=== PATIENT | male | born 1975 | race Caucasian/White ===

== ENCOUNTER 2017-01-31 23:20 | Emergency (ER) | payer OTHER ==
[~2017-01-31] VITALS: Ht 177.8 cm; Wt 99.5 kg
[2017-01-31 23:27] VITALS: TEMP 36.5; Ht 177.8 cm; Wt 99.5 kg
[2017-01-31] MEDS ORDERED: LIDOCAINE HCL 2% VISC SOLN 20 ML UDC PO STA (23:51)
[2017-01-31] MEDS ORDERED: ALUMINUM/MAGNESIUM SUSP 30 ML UDC PO STA (23:51)
[2017-02-01 00:18] LABS: BASO % 0.2 %; BASO ABS # 0.02 K/uL (0-0.2); COMPLETE YES; EOS % 1.6 %; HEMATOCRIT 42.3 % (42-52); IG% 0.2 %; LYMPH % 46.3 %; LYMPH ABS # 4.47 K/uL (1.2-3.4); MEAN CELL VOLUME 89.6 fL (80-100); MEAN CORPUSCULAR HEMOGLOBIN 30.3 pg (25-34); MEAN CORPUSCULAR HGB CONC 33.8 g/dl (32-36); MEAN PLATELET VOLUME 8.8 fL (7.4-10.4); MONO % 7.6 %; NEUT % 44.1 %; PLATELET COUNT 417 K/uL (130-400); RED BLOOD COUNT 4.72 M/uL (4.7-6.1); WHITE BLOOD COUNT 9.65 K/uL (4.8-10.8)
[2017-02-01 00:38] LABS: ALT/SGPT 27 U/L (12-78); AST/SGOT 11 U/L (15-37); BLOOD UREA NITROGEN 19 mg/dl (7-18); BUN/CREATININE RATIO 19.2 (10-20); CALCIUM 9.2 mg/dl (8.5-10.1); CARBON DIOXIDE 28 mmol/L (21-32); CHLORIDE 106 mmol/L (98-107); CREATININE 0.98 mg/dl (0.60-1.40); GLUCOSE 91 mg/dl (70-99); POTASSIUM 4.2 mmol/L (3.5-5.1); SODIUM 141 mmol/L (136-145)
[2017-02-01 00:43] LABS: ALKALINE PHOSPHATASE 70 U/L (45-117)
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
[2017-02-01] MEDS ORDERED: PANT40TA PO (02:37)
[2017-02-01] MEDS ORDERED: PANTOprazole SOD 40 MG TAB PO STA (03:30)
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
[2017-02-01 03:41] VITALS: BP 143/82; PULSE 82; O2SAT 99
--- NOTE | 2017-02-01 07:19 | DIAGNOSTIC IMAGING REPORT ---
CHEST ONE VIEW PORTABLE HISTORY: Atypical CHEST PAIN COMPARISON: Chest 01/11/2016. FINDINGS: The lungs are clear. Cardiac silhouette is normal in size. No pleural effusions. No pneumothorax. A left-sided ventriculoperitoneal shunt is again noted. IMPRESSION: No acute process. Electronically signed by: Agapito Jacobs M.D. 02/01/2017 7:18 AM Dictated Date/Time: 02/01/2017 7:17 AM
== END 2017-02-01 03:42 | disposition home or self-care (01) ==
LOC: C.EDB 23:20
DX: R07.2 Precordial pain (principal); K21.9 Gastro-esophageal reflux disease without esophagitis; Z87.891 Personal history of nicotine dependence; Z98.890 Other specified postprocedural states

== ENCOUNTER 2017-02-15 01:35 | Emergency (ER) | payer OTHER ==
[~2017-02-15] VITALS: Ht 177.8 cm; Wt 97.7 kg
[~2017-02-15 01:35] MED LIST: PANT40TA PO
[2017-02-15 01:38] VITALS: TEMP 36.5; Ht 177.8 cm; Wt 97.7 kg
[2017-02-15] MEDS ORDERED: LIDOCAINE HCL 2% VISC SOLN 20 ML UDC PO STA (01:54)
[2017-02-15] MEDS ORDERED: ALUMINUM/MAGNESIUM SUSP 30 ML UDC PO STA (01:54)
[2017-02-15] MEDS ORDERED: RANITIDINE HCL 50 MG/100 ML D5W IV STA (01:54)
[2017-02-15 02:18] LABS: HEMATOCRIT 41.3 % (42-52); MEAN CORPUSCULAR HEMOGLOBIN 30.6 pg (25-34); MEAN CORPUSCULAR HGB CONC 34.4 g/dl (32-36); MEAN PLATELET VOLUME 8.6 fL (7.4-10.4); PLATELET COUNT 382 K/uL (130-400); RED BLOOD COUNT 4.64 M/uL (4.7-6.1)
[2017-02-15 02:39] LABS: BLOOD UREA NITROGEN 17 mg/dl (7-18); BUN/CREATININE RATIO 16.8 (10-20); CALCIUM 8.8 mg/dl (8.5-10.1); CARBON DIOXIDE 28 mmol/L (21-32); CHLORIDE 107 mmol/L (98-107); GLUCOSE 94 mg/dl (70-99); POTASSIUM 3.8 mmol/L (3.5-5.1); SODIUM 143 mmol/L (136-145)
[2017-02-15 02:48] LABS: ALKALINE PHOSPHATASE 70 U/L (45-117); ALT/SGPT 29 U/L (12-78); AST/SGOT 15 U/L (15-37)
[2017-02-15 03:04] LABS: BASO ABS # 0.07 K/uL (0-0.2); BASOPHIL % 0.9 % (0-2); COMPLETE YES; EOSINOPHIL % 1.8 %; LARGE GRANULAR LYMPH ABSOLUTE 2.03 K/uL; LARGE GRANULAR LYMPHOCYTE % 25.7 %; LYMPH ABS # 2.38 K/uL (1.2-3.4); LYMPHOCYTE % 30.1 %; META ABS # 0.07 K/uL (0-0); METAMYELOCYTE % 0.9 %; NEUTROPHILS % 31.8 %
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
[2017-02-15] MEDS ORDERED: PANT40TA PO (04:37)
[2017-02-15 04:45] VITALS: BP 140/75; PULSE 81; O2SAT 95
--- NOTE | 2017-02-15 07:06 | DIAGNOSTIC IMAGING REPORT ---
CHEST ONE VIEW PORTABLE CLINICAL HISTORY: CHEST PAIN dyspnea COMPARISON STUDY: 02/01/2017 FINDINGS: The bones soft tissues and hemidiaphragms are normal. The cardiomediastinal silhouette is normal. The lungs are clear. The pulmonary vasculature is normal. IMPRESSION: Negative chest. Electronically signed by: Chavez Epperson M.D. 02/15/2017 7:04 AM Dictated Date/Time: 02/15/2017 7:03 AM
== END 2017-02-15 04:46 | disposition home or self-care (01) ==
LOC: C.EDB 01:36 → C.EDA 04:46
DX: R07.2 Precordial pain (principal); Z86.19 Personal history of other infectious and parasitic diseases; Z98.2 Presence of cerebrospinal fluid drainage device; Z87.891 Personal history of nicotine dependence; Z88.0 Allergy status to penicillin; Z91.09 Other allergy status, other than to drugs and biological substances; Z82.49 Family history of ischemic heart disease and other diseases of the circulatory system

== ENCOUNTER 2017-04-12 02:23 | Emergency (ER) | payer OTHER ==
[~2017-04-12] VITALS: Ht 177.8 cm; Wt 97.7 kg
[2017-04-12 02:26] VITALS: TEMP 36.5; Ht 177.8 cm; Wt 97.7 kg
[2017-04-12] MEDS ORDERED: LIDOCAINE HCL 2% VISC SOLN 20 ML UDC PO STA (02:39)
[2017-04-12] MEDS ORDERED: ONDANSETRON INJ 2 MG/ML 2 ML VIAL IV STA (02:39)
[2017-04-12] MEDS ORDERED: ALUMINUM/MAGNESIUM SUSP 30 ML UDC PO STA (02:39)
[2017-04-12] MEDS ORDERED: RANITIDINE HCL 150 MG TAB PO ONE (02:45)
[2017-04-12 03:00] LABS: BASO % 0.3 %; BASO ABS # 0.03 K/uL (0-0.2); COMPLETE YES; EOS % 2.2 %; IG% 0.1 %; LYMPH % 46.3 %; LYMPH ABS # 4.15 K/uL (1.2-3.4); MEAN CELL VOLUME 90.1 fL (80-100); MEAN CORPUSCULAR HEMOGLOBIN 31.4 pg (25-34); MEAN CORPUSCULAR HGB CONC 34.9 g/dl (32-36); MONO % 8.8 %; NEUT % 42.3 %; PLATELET COUNT 404 K/uL (130-400); RED BLOOD COUNT 4.55 M/uL (4.7-6.1); WHITE BLOOD COUNT 8.97 K/uL (4.8-10.8)
[2017-04-12 03:28] LABS: ALKALINE PHOSPHATASE 70 U/L (45-117); ALT/SGPT 28 U/L (12-78); BLOOD UREA NITROGEN 20 mg/dl (7-18); BUN/CREATININE RATIO 18.1 (10-20); CALCIUM 9.5 mg/dl (8.5-10.1); CARBON DIOXIDE 28 mmol/L (21-32); CHLORIDE 105 mmol/L (98-107); GLUCOSE 96 mg/dl (70-99)
[2017-04-12 03:31] LABS: POTASSIUM 4.1 mmol/L (3.5-5.1); SODIUM 140 mmol/L (136-145)
[2017-04-12 03:36] LABS: AST/SGOT 11 U/L (15-37)
[2017-04-12 04:31] LABS: URINE APPEARANCE CLEAR (CLEAR); URINE BILIRUBIN NEG (NEG); URINE COLOR YELLOW; URINE NITRITE NEG (NEG); URINE PH 5.5 (4.5-7.5); URINE SPECIFIC GRAVITY 1.024 (1.000-1.030); UROBILINOGEN NEG (NEG)
[2017-04-12 05:01] LABS: MANUAL MICROSCOPIC REQUIRED? NO; REVIEW REQ? NO
[2017-04-12 05:04] VITALS: BP 135/96; PULSE 62; O2SAT 98
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
== END 2017-04-12 05:04 | disposition home or self-care (01) ==
LOC: C.EDB 02:24 → C.EDA 05:04
DX: R10.13 Epigastric pain (principal); R19.7 Diarrhea, unspecified; Z86.19 Personal history of other infectious and parasitic diseases; Z98.2 Presence of cerebrospinal fluid drainage device; Z87.891 Personal history of nicotine dependence; Z88.0 Allergy status to penicillin; Z91.09 Other allergy status, other than to drugs and biological substances; Z82.49 Family history of ischemic heart disease and other diseases of the circulatory system

== ENCOUNTER 2017-06-15 23:51 | Emergency (ER) | payer OTHER ==
[~2017-06-15] VITALS: Ht 177.8 cm; Wt 96.4 kg
[2017-06-15 23:55] VITALS: Ht 177.8 cm; Wt 96.4 kg
[2017-06-16 00:04] VITALS: O2SAT 98
[2017-06-16] MEDS ORDERED: ONDANSETRON INJ 2 MG/ML 2 ML VIAL IV STA (00:09)
[2017-06-16] MEDS ORDERED: ALUMINUM/MAGNESIUM SUSP 30 ML UDC PO STA (00:09)
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
[2017-06-16 00:18] LABS: BASO % 0.3 %; BASO ABS # 0.03 K/uL (0-0.2); COMPLETE YES; EOS % 1.9 %; IG% 0.3 %; LYMPH % 49.1 %; LYMPH ABS # 4.91 K/uL (1.2-3.4); MEAN CELL VOLUME 88.1 fL (80-100); MEAN CORPUSCULAR HEMOGLOBIN 31.1 pg (25-34); MEAN CORPUSCULAR HGB CONC 35.3 g/dl (32-36); MEAN PLATELET VOLUME 8.9 fL (7.4-10.4); MONO % 7.5 %; NEUT % 40.9 %; PLATELET COUNT 395 K/uL (130-400); RED BLOOD COUNT 4.54 M/uL (4.7-6.1); WHITE BLOOD COUNT 9.99 K/uL (4.8-10.8)
[2017-06-16] MEDS ORDERED: [UNRECOGNIZED DRUG - CODE] PO (00:19)
[2017-06-16 00:23] LABS: INR 0.9 (0.9-1.1); PROTHROMBIN TIME (PATIENT) 10.1 SECONDS (9.0-12.0)
[2017-06-16 00:38] LABS: ALT/SGPT 22 U/L (12-78); AST/SGOT 10 U/L (15-37); BLOOD UREA NITROGEN 21 mg/dl (7-18); BUN/CREATININE RATIO 18.7 (10-20); CALCIUM 8.8 mg/dl (8.5-10.1); CARBON DIOXIDE 26 mmol/L (21-32); CHLORIDE 105 mmol/L (98-107); GLUCOSE 100 mg/dl (70-99); MAGNESIUM 2.4 mg/dl (1.8-2.4); POTASSIUM 3.7 mmol/L (3.5-5.1); SODIUM 139 mmol/L (136-145)
[2017-06-16 00:43] LABS: ALKALINE PHOSPHATASE 75 U/L (45-117)
[2017-06-16 04:00] VITALS: BP 129/81; PULSE 77; O2SAT 97
--- NOTE | 2017-06-16 07:28 | DIAGNOSTIC IMAGING REPORT ---
CHEST AND ABDOMEN 2 VIEWS HISTORY: Atypical chest pain, epigastric pain COMPARISON: Chest 02/15/2017. FINDINGS: The lungs are clear. The heart is normal in size. Left-sided shunt catheter. The tip terminates in the right upper quadrant. Question of a fracture within the shunt catheter at the left upper chest. No pneumoperitoneum. No pneumatosis. No renal or ureteral calculi. The bowel gas pattern is unremarkable. No evidence for bowel obstruction. IMPRESSION: 1. No acute cardiopulmonary process. 2. No evidence for bowel obstruction. 3. Question of a small fracture within the shunt catheter at the left upper chest. Repeat PA and lateral views of the chest may be helpful for confirmation. Electronically signed by: Agapito Jacobs M.D. 06/16/2017 7:27 AM Dictated Date/Time: 06/16/2017 7:23 AM
== END 2017-06-16 04:00 | disposition home or self-care (01) ==
LOC: C.EDB 23:54 → C.EDA 06-16 04:00
DX: R07.9 Chest pain, unspecified (principal); R11.0 Nausea; Z87.891 Personal history of nicotine dependence; Z99.2 Dependence on renal dialysis; Z88.0 Allergy status to penicillin; Z91.09 Other allergy status, other than to drugs and biological substances; Z82.49 Family history of ischemic heart disease and other diseases of the circulatory system

== ENCOUNTER 2021-02-13 10:08 | Observation (INO) ==
[2021-02-13] MEDS ORDERED: SODIUM CHLORIDE 0.9% 1000ML 500 ML IV ONE (11:45)
--- NOTE | 2021-02-13 11:51 | Emergency Department Note ---
Impression & Plan Left facial numbness, Hypertension, Numbness of left hand, Brain TIA ED Provider Note NAME: RUSTAM FELIPE AGE: 45 SEX: M : 1975 ARRIVES VIA: Walk-In INFORMANT: [Patient] ED PROVIDER(S): [Fernando Leos MD] Patient was initially seen by me at 1140 CHIEF COMPLAINT: Stroke symptoms HISTORY OF PRESENT ILLNESS: The patient is a 45-year-old male with a history of Dandy-Walker syndrome and an intracranial shunt. No history of seizure, no history of stroke. Patient s tates that Tuesday, 2 days ago, a ceiling fan fell and hit him on the head. There was no loss of conscious, he had no headache. Patient states that this morning, he was somewhat nauseated. The nausea got better after a bowel movement. He was playing pickle ball at 930, just over 2 hours ago when for 5 minutes, the left face was numb. 5 minutes later, his left first 3 fingers were numb. The finger numbness lasted 5 minutes. There was no extremity weakness. He now is without any symptoms. The patient spoke to some people who are involved in healthcare, he was referred to the ED for further work-up. He has had no recurrence of symptoms since the finger numbness has resolved. There has been no cough or congestion. He is not had fever. No urinary complaints. He is not on any blood thinning medications. Of note, the patient has not been taking his cholesterol or blood pressure medication. REVIEW OF SYSTEMS: See HPI for pertinent positives and negatives. A total of ten systems were reviewed and were otherwise negative. PMHx/PSHx: See Below SOCIAL HISTORY: See Below. PHYSICAL EXAM: GENERAL: Patient is in no acute distress. HEENT: No acute trauma, normocephalic atraumatic, mucous membranes moist, no nasal congestion, no scleral icterus. NECK: No stridor, no adenopathy, no meningismus, trachea is midline. LUNGS: Clear to auscultation bilaterally, no wheeze, no rhonchi, breath sounds equal. HEART: Without murmurs gallops or rubs, regular rate and rhythm. ABDOMEN: Soft, nontender, bowel sounds positive, no hernias, no peritonitis. EXTREMITIES: No cyanosis or edema, full range of motion of all the joints without pain or difficulty, no signs for acute trauma. NEUROLOGIC: Oriented x 3, no acute motor or sensory deficits, no focal weakness. No speech slur or facial droop, no extremity drift or cerebellar dysfunction. SKIN: No rash, no jaundice, no diaphoresis. DIFFERENTIAL DIAGNOSIS: Infection, dehydration, metabolic abnormality, hypo/hyperglycemia, electrolyte disturbance, anemia, hypoxia, cardiac sources, intracerebral event, toxicologic issues, stroke, TIA, as well as other pathologies. EMERGENCY DEPARTMENT COURSE/PROCEDURES: ECG: Indication was possible stroke. The ECG shows a normal sinus rhythm with a rate of 82. There is no ST elevation, no PVCs. The QTc is 464. Continuous Cardiac Monitoring: An order was placed for continuous cardiac monitoring. The monitor shows a rate of 101 with sinus tachycardia. Critical Care Note: I have personally spent 39 minutes of critical care time in the direct management of this patient. This includes bedside care, interpretation of diagnostic studies, and testing, discussion with consultants, patient, and family members, and other required patient management activities. This 39 minutes is in excess of all separately billable procedures. MEDICAL DECISION MAKING: There is no leukocytosis or concerning anemia. There is a mild elevation to the platelet count. No coagulopathy. No significant electrolyte abnormality in need of emergent correction. No kidney failure. No worrisome liver enzyme elevation. ECG shows a sinus rhythm, no acute ischemia. Cardiac enzyme testing x1 is not consistent with acute cardiac injury. Covid testing returned negative. Brain CT showed no acute bleed or mass-effect. His shunt was noted to be in proper position. CT angio of the brain and neck were done. There was significant narrowing and plaquing of the cervical arteries. There was narrowing of the M2 branch of the left middle cerebral artery. On my exam, the patient did not have any focal neurologic findings. His symptoms had resolved prior to arrival. The patient was aggressively managed. He was not a candidate for TPA as his symptoms had resolved. I did speak with the patient at length. He admits he has not taken his blood pressure medication or cholesterol medication in some time. He did receive a dose of IV labetalol for elevated blood pressure. The patient was given a 500 cc saline bolus, he is currently resting comfor tably. The patient requires a hospital stay and further work-up. He will need to see neurology, he needs to get back on his typical medications. He likely will require an MRI for further stroke work-up. I did speak with case management, the on-call hospitalist was consulted. Past Med/Surg History Medical History Dandy-Walker deformity Hypertension Hypocholesteremia Skin abscess Surgical History History of brain shunt Social History Smoking Status: Current every day smoker Tobacco Type: E-cigarettes / Vaping Feels Safe at Home: Yes Allergies Allergies Allergy/AdvReac Type Severity Reaction Status Date / Time Penicillins Allergy Intermediate hives Verified 02/13/21 13:37 cat dander Allergy Mild runny Verified 02/13/21 13:37 nose, itchy eyes Home Meds Home Medications Medication Instructions Recorded Confirmed No Known Home Medications 02/13/21 02/13/21 Results & Data (ED) Vital Signs Vital Signs - 24 hr 02/13/21 10:11 02/13/21 12:10 02/13/21 12:52 Temperature 36.3 C L Temperature Source Temporal Artery Scan Pulse Rate 101 H 87 82 Pulse Rate from SpO2 Sensor 80 82 Respiratory Rate 20 24 21 Respiratory Effort / Characteristics Non-Labored Spontaneous Respiratory Depth Normal Blood Pressure 166/105 H 141/113 H Blood Pressure Mean 125 122 Pulse Oximetry 96 97 95 Oxygen Delivery Method Room Air Sepsis Recent Fever Within 48 Hours No Sepsis New/Unexplained Change in Mental Status N/A Sepsis Action Taken by Nursing No Action Required 02/13/21 13:01 02/13/21 14:00 02/13/21 14:30 Temperature Temperature Source Pulse Rate 78 76 84 Pulse Rate from SpO2 Sensor 78 75 83 Respiratory Rate 14 15 23 Respiratory Effort / Characteristics Respiratory Depth Blood Pressure 176/108 H 156/105 H Blood Pressure Mean 130 122 Pulse Oximetry 98 93 93 Oxygen Delivery Method Sepsis Recent Fever Within 48 Hours Sepsis New/Unexplained Change in Mental Status Sepsis Action Taken by Nursing 02/13/21 14:32 Temperature Temperature Source Pulse Rate 86 Pulse Rate from SpO2 Sensor 86 Respiratory Rate 18 Respiratory Effort / Characteristics Respiratory Depth Blood Pressure 198/128 H Blood Pressure Mean 151 Pulse Oximetry 97 Oxygen Delivery Method Sepsis Recent Fever Within 48 Hours Sepsis New/Unexplained Change in Mental Status Sepsis Action Taken by Assisted Medications Current Medication List: was personally reviewed by tn Laboratory Data Attestation: I reviewed the patient's lab results. Result diagrams: 02/13/21 11:56 02/13/21 11:56 Lab Results 02/13/21 02/13/21 02/13/21 Range/Units 11:56 11:56 11:56 WBC 7.14 (4.8-10.8) K/uL RBC 4.69 L (4.7-6.1) M/uL Hgb 14.5 (14.0-18.0) g/dL Hct 42.5 (42-52) % MCV 90.6 (80-100) fL MCH 30.9 (25-34) pg MCHC 34.1 (32-36) g/dL RDW Std Deviation 42.2 (36.4-46.3) fL RDW Coeff of Lacey 12.8 (11.5-14.5) % Plt Count 443 H (130-400) K/uL MPV 9.2 (7.4-10.4) fL Immature Gran % (Auto) 0.3 % Neut % (Auto) 62.1 % Lymph % (Auto) 25.9 % [place] % (Auto) 9.8 % Eos % (Auto) 1.5 % Baso % (Auto) 0.4 % Neut # (Auto) 4.43 (1.4-6.5) K/uL Lymph # (Auto) 1.85 (1.2-3.4) K/uL [place] # (Auto) 0.70 H (0.11-0.59) K/uL Eos # (Auto) 0.11 (0-0.5) K/uL Baso # (Auto) 0.03 (0-0.2) K/uL Immature Gran # (Auto) 0.02 (0.00-0.02) K/uL PT 9.9 (9.0-12.0) Seconds INR 1.0 (0.9-1.1) APTT 26.2 (21.0-31.0) Seconds PTT Ratio 1.0 Sodium (136-145) mmol/L Potassium (3.5-5.1) mmol/L Chloride (98-107) mmol/L Carbon Dioxide (21-32) mmol/L Anion Gap (3-11) BUN (7-18) mg/dl Creatinine (0.6-1.4) mg/dl Est Cr Clr Drug Dosing ml/min Est GFR ( Amer) ml/min Est GFR (Non-Af Amer) ml/min BUN/Creatinine Ratio (10-20) Glucose (70-99) mg/dl Calcium (8.5-10.1) mg/dl Magnesium (1.8-2.4) mg/dl Total Bilirubin (0.2-1) mg/dl AST (15-37) U/L ALT (12-78) U/L Alkaline Phosphatase (45-117) U/L Troponin I (0-0.045) ng/ml Total Protein (6.4-8.2) gm/dl Albumin (3.4-5.0) gm/dl Globulin (2.5-4.0) gm/dl Albumin/Globulin Ratio (0.9-2) Blood Type A Positive Antibody Screen NEGATIVE 02/13/21 Range/Units 11:56 WBC (4.8-10.8) K/uL RBC (4.7-6.1) M/uL Hgb (14.0-18.0) g/dL Hct (42-52) % MCV (80-100) fL MCH (25-34) pg MCHC (32-36) g/dL RDW Std Deviation (36.4-46.3) fL RDW Coeff of Lacey (11.5-14.5) % Plt Count (130-400) K/uL MPV (7.4-10.4) fL Immature Gran % (Auto) % Neut % (Auto) % Lymph % (Auto) % [place] % (Auto) % Eos % (Auto) % Baso % (Auto) % Neut # (Auto) (1.4-6.5) K/uL Lymph # (Auto) (1.2-3.4) K/uL [place] # (Auto) (0.11-0.59) K/uL Eos # (Auto) (0-0.5) K/uL Baso # (Auto) (0-0.2) K/uL Immature Gran # (Auto) (0.00-0.02) K/uL PT (9.0-12.0) Seconds INR (0.9-1.1) APTT (21.0-31.0) Seconds PTT Ratio Sodium 139 (136-145) mmol/L Potassium 4.3 (3.5-5.1) mmol/L Chloride 108 H (98-107) mmol/L Carbon Dioxide 27 (21-32) mmol/L Anion Gap 4.0 (3-11) BUN 11 (7-18) mg/dl Creatinine 0.96 (0.6-1.4) mg/dl Est Cr Clr Drug Dosing 120.2 ml/min Est GFR ( Amer) 108.7 ml/min Est GFR (Non-Af Amer) 93.8 ml/min BUN/Creatinine Ratio 11.3 (10-20) Glucose 82 (70-99) mg/dl Calcium 9.1 (8.5-10.1) mg/dl Magnesium 2.2 (1.8-2.4) mg/dl Total Bilirubin 0.3 (0.2-1) mg/dl AST 22 (15-37) U/L ALT 41 (12-78) U/L Alkaline Phosphatase 133 H (45-117) U/L Troponin I < 0.015 (0-0.045) ng/ml Total Protein 7.9 (6.4-8.2) gm/dl Albumin 3.9 (3.4-5.0) gm/dl Globulin 4.0 (2.5-4.0) gm/dl Albumin/Globulin Ratio 1.0 (0.9-2) Blood Type Antibody Screen Administered Medications Discontinued Medications Sodium Chloride (Nss 1000ml) 500 mls @ 999 mls/hr IV .Q31M ONE Stop: 02/13/21 12:15 Last Infusion: 02/13/21 13:34 Dose: 0 mls/hr Documented by: [id number] Admin: 02/13/21 12:16 Dose: 999 mls/hr Documented by: [id number] Ioversol (Optiray 350 500ml) 120 ml IV ONCE ONE Stop: 02/13/21 12:45 Last Admin: 02/13/21 12:44 Dose: 120 ml Documented by: [id number] Labetalol HCl (Labetalol Hcl Iv 5 Mg/Ml 20ml) 10 mg IV NOW STA Stop: 02/13/21 13:26 Last Admin: 02/13/21 13:43 Dose: 10 mg Documented by: [id number] Cosigned by: [id number] Imaging Data Radiologist's Impression: Head CT 02/13/21 11:45 CT head/brain wo con, CT angio neck with con, CT angio head w con CLINICAL HISTORY: 45 years-old Male with Stroke Like Symptoms. Acute strokelike symptoms TECHNIQUE: Multiple axial CT images of the head were obtained without contrast. CTA head and neck was also obtained following the intravenous administration of 120 mL Optiray 320. 3-D coronal and sagittal MIPS were obtained today set and were symmetric for review. All measurements were obtained according to NASCET criteria. A dose lowering technique was utilized adhering to the principles of ALARA. CT DOSE: 1244.60 mGy.cm COMPARISON: Head CT 12/24/2015. FINDINGS: CT HEAD: No acute intracranial hemorrhage, midline shift, hydrocephalus, or territorial ischemia. 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 Cystic abnormality communicating with the fourth ventricle is unchanged again containing a remnant of a ventriculostomy catheter. Left parietal approach ventriculostomy catheter is in unchanged positioning with distal tip projecting over the foramen of Monro. Decompressed lateral ventricles. Parenchymal calcifications adjacent to the fourth ventricle redemonstrated. Cerebral vascular calcifications. The calvarium is intact. The paranasal sinuses, mastoid air cells, and middle ear cavities are clear. CTA HEAD AND NECK: Three-vessel morphology of the thoracic aortic arch. Patency of the innominate and imaged subclavian arteries. The common carotid arteries are widely patent. Mild atherosclerotic plaque of the carotid bulbs and proximal cervical segments of the internal carotid arteries without significant luminal narrowing. The internal carotid arteries are widely patent. Development is diminutive right A1 segment. The right middle and bilateral anterior cerebral arteries are patent. There is high-grade stenosis involving M2 branch of the left middle cerebral artery on image 117 with areas of poststenotic dilation measuring up to 4 mm seen on image 126 suggestive of chronic etiology. The vertebral arteries are codominant. Extensive atherosclerotic plaque of the V4 segments of the vertebral arteries. There is moderate luminal narrowing of the V4 segment right vertebral artery on image 332 series 6 with high-grade stenosis of the proximal basilar artery. Cerebral venous sinuses are patent. There is no abnormal intracranial enhancement. There is no pneumothorax. Unremarkable thyroid. Soft tissues of the neck are unremarkable. Mild mucosal thickening of the ethmoid air cells. Degenerative changes of the spine. IMPRESSION: 1. No acute intracranial abnormality. 2. Left-sided ventriculostomy catheter redemonstrated. No hydrocephalus. 3. 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 4. Extensive atherosclerotic plaque of the distal vertebral and basilar arteries. There is resultant moderate stenosis of the V4 segment right vertebral artery with high-grade stenosis of the basilar artery. 5. 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 ACT 112: Negative or not required by law. The above report was generated using voice recognition software. It may contain grammatical, syntax or spelling errors. Electronically signed by: Hiren Gutierrez M.D. 02/13/2021 1:16 PM Head CTA 02/13/21 11:45 CT head/brain wo con, CT angio neck with con, CT angio head w con CLINICAL HISTORY: 45 years-old Male with Stroke Like Symptoms. Acute strokelike symptoms TECHNIQUE: Multiple axial CT images of the head were obtained without contrast. CTA head and neck was also obtained following the intravenous administration of 120 mL Optiray 320. 3-D coronal and sagittal MIPS were obtained today set and were symmetric for review. All measurements were obtained according to NASCET criteria. A dose lowering technique was utilized adhering to the principles of ALARA. CT DOSE: 1244.60 mGy.cm COMPARISON: Head CT 12/24/2015. FINDINGS: CT HEAD: No acute intracranial hemorrhage, midline shift, hydrocephalus, or territorial ischemia. 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 Cystic abnormality communicating with the fourth ventricle is unchanged again containing a remnant of a ventriculostomy c atheter. Left parietal approach ventriculostomy catheter is in unchanged positioning with distal tip projecting over the foramen of Monro. Decompressed lateral ventricles. Parenchymal calcifications adjacent to the fourth ventricle redemonstrated. Cerebral vascular calcifications. The calvarium is intact. The paranasal sinuses, mastoid air cells, and middle ear cavities are clear. CTA HEAD AND NECK: Three-vessel morphology of the thoracic aortic arch. Patency of the innominate and imaged subclavian arteries. The common carotid arteries are widely patent. Mild atherosclerotic plaque of the carotid bulbs and proximal cervical segments of the internal carotid arteries without significant luminal narrowing. The internal carotid arteries are widely patent. Development is diminutive right A1 segment. The right middle and bilateral anterior cerebral arteries are patent. There is high-grade stenosis involving M2 branch of the left middle cerebral artery on image 117 with areas of poststenotic dilation measuring up to 4 mm seen on image 126 suggestive of chronic etiology. The vertebral arteries are codominant. Extensive atherosclerotic plaque of the V4 segments of the vertebral arteries. There is moderate luminal narrowing of the V4 segment right vertebral artery on image 332 series 6 with high-grade stenosis of the proximal basilar artery. Cerebral venous sinuses are patent. There is no abnormal intracranial enhancement. There is no pneumothorax. Unremarkable thyroid. Soft tissues of the neck are unremarkable. Mild mucosal thickening of the ethmoid air cells. Degenerative changes of the spine. IMPRESSION: 1. No acute intracranial abnormality. 2. Left-sided ventriculostomy catheter redemonstrated. No hydrocephalus. 3. 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 4. Extensive atherosclerotic plaque of the distal vertebral and basilar arteries. There is resultant moderate stenosis of the V4 segment right vertebral artery with high-grade stenosis of the basilar artery. 5. 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 ACT 112: Negative or not required by law. The above report was generated using voice recognition software. It may contain grammatical, syntax or spelling errors. Electronically signed by: Hiren Gutierrez M.D. 02/13/2021 1:16 PM Neck CTA 02/13/21 11:45 CT head/brain wo con, CT angio neck with con, CT angio head w con CLINICAL HISTORY: 45 years-old Male with Stroke Like Symptoms. Acute strokelike symptoms TECHNIQUE: Multiple axial CT images of the head were obtained without contrast. CTA head and neck was also obtained following the intravenous administration of 120 mL Optiray 320. 3-D coronal and sagittal MIPS were obtained today set and were symmetric for review. All measurements were obtained according to NASCET criteria. A dose lowering technique was utilized adhering to the principles of ALARA. CT DOSE: 1244.60 mGy.cm COMPARISON: Head CT 12/24/2015. FINDINGS: CT HEAD: No acute intracranial hemorrhage, midline shift, hydrocephalus, or territorial ischemia. 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 Cystic abnormality communicating with the fourth ventricle is unchanged again containing a remnant of a ventriculostomy catheter. Left parietal approach ventriculostomy catheter is in unchanged positioning with distal tip projecting over the foramen of Monro. Decompressed lateral ventricles. Parenchymal calcifications adjacent to the fourth ventricle redemonstrated. Cerebral vascular calcifications. The calvarium is intact. The paranasal sinuses, mastoid air cells, and middle ear cavities are clear. CTA HEAD AND NECK: Three-vessel morphology of the thoracic aortic arch. Patency of the innominate and imaged subclavian arteries. The common carotid arteries are widely patent. Mild atherosclerotic plaque of the carotid bulbs and proximal cervical segments of the internal carotid arteries without significant luminal narrowing. The internal carotid arteries are widely patent. Development is diminutive right A1 segment. The right middle and bilateral anterior cerebral arteries are patent. There is high-grade stenosis involving M2 branch of the left middle cerebral artery on image 117 with areas of poststenotic dilation measuring up to 4 mm seen on image 126 suggestive of chronic etiology. The vertebral arteries are codominant. Extensive atherosclerotic plaque of the V4 segments of the vertebral arteries. There is moderate luminal narrowing of the V4 segment right vertebral artery on image 332 series 6 with high-grade stenosis of the proximal basilar artery. Cerebral venous sinuses are patent. There is no abnormal intracranial enhancement. There is no pneumothorax. Unremarkable thyroid. Soft tissues of the neck are unremarkable. Mild mucosal thickening of the ethmoid air cells. Degenerative changes of the spine. IMPRESSION: 1. No acute intracranial abnormality. 2. Left-sided ventriculostomy catheter redemonstrated. No hydrocephalus. 3. 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 4. Extensive atherosclerotic plaque of the distal vertebral and basilar arteries. There is resultant moderate stenosis of the V4 segment right vertebral artery with high-grade stenosis of the basilar artery. 5. 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 ACT 112: Negative or not required by law. The above report was generated using voice recognition software. It may contain grammatical, syntax or spelling errors. Electronically signed by: Hiren Gutierrez M.D. 02/13/2021 1:16 PM Discharge Plan Visit Data Chief Complaint: TIA Symptoms Stated Complaint: NUMBNESS L SIDE MOUTH AND FINGERS ED Provider: Fernando Leos Discharge Problem: Left facial numbness, Hypertension, Numbness of left hand, Brain TIA Patient Disposition: Admitted As Inpatient Condition: Fair Discharge Problem: Hypertension Qualifiers: Hypertension type: unspecified Qualified Code(s): I10 - Essential (primary) hypertension
[2021-02-13 12:08] LABS: Basophils # (auto) 0.03 K/uL (0-0.2); Basophils % (auto) 0.4 %; Eosinophils # (auto) 0.11 K/uL (0-0.5); Eosinophils % (auto) 1.5 %; Hematocrit (blood only) 42.5 % (42-52); Hemoglobin 14.5 g/dL (14.0-18.0); Immature Granulocytes # (auto) 0.02 K/uL (0.00-0.02); Immature Granulocytes % (auto) 0.3 %; Lymphocytes # (auto) 1.85 K/uL (1.2-3.4); Lymphocytes % (auto) 25.9 %; Mean Corpuscular Hemoglobin 30.9 pg (25-34); Mean Corpuscular Hgb Conc 34.1 g/dL (32-36); Mean Corpuscular Volume 90.6 fL (80-100); Mean Platelet Volume 9.2 fL (7.4-10.4); Monocytes % (auto) 9.8 %; Neutrophils # (auto) 4.43 K/uL (1.4-6.5); Neutrophils % (auto) 62.1 %; Platelet Count 443 K/uL (130-400); RDW Coefficient of Variation 12.8 % (11.5-14.5); RDW Standard Deviation 42.2 fL (36.4-46.3); Red Blood Count 4.69 M/uL (4.7-6.1); White Blood Count 7.14 K/uL (4.8-10.8)
[2021-02-13 12:18] LABS: Partial Thromboplastin Time 26.2 Seconds (21.0-31.0); Prothrombin Time 9.9 Seconds (9.0-12.0)
[2021-02-13 12:24] LABS: Blood Urea Nitrogen 11 mg/dl (7-18); Carbon Dioxide 27 mmol/L (21-32); Chloride 108 mmol/L (98-107); Creatinine Clr Calc Pharmacy 120.2 ml/min; Est GFR (African American) 108.7 ml/min; Est GFR (Non-African American) 93.8 ml/min; Potassium 4.3 mmol/L (3.5-5.1); Sodium 139 mmol/L (136-145)
[2021-02-13 12:25] LABS: Alanine Aminotransferase 41 U/L (12-78); Albumin Level 3.9 gm/dl (3.4-5.0); Aspartate Aminotransferase 22 U/L (15-37); BUN Creatinine Ratio 11.3 (10-20); Calcium 9.1 mg/dl (8.5-10.1); Glucose 82 mg/dl (70-99); Magnesium 2.2 mg/dl (1.8-2.4)
[2021-02-13 12:30] LABS: Alkaline Phosphatase 133 U/L (45-117); Bilirubin,Total 0.3 mg/dl (0.2-1); Total Protein 7.9 gm/dl (6.4-8.2); Troponin I < 0.015 ng/ml (0-0.045)
[2021-02-13] MEDS ORDERED: OPTIRAY 350 500ml IV ONE (12:44)
--- NOTE | 2021-02-13 13:17 | CT Scan Report ---
CT head/brain wo con, CT angio neck with con, CT angio head w con CLINICAL HISTORY: 45 years-old Male with Stroke Like Symptoms. Acute strokelike symptoms TECHNIQUE: Multiple axial CT images of the head were obtained without contrast. CTA head and neck was also obtained following the intravenous administration of 120 mL Optiray 320. 3-D coronal and sagitt al MIPS were obtained today set and were symmetric for review. All measurements were obtained accordi ng to NASCET criteria. A dose lowering technique was utilized adhering to the principles of ALARA. CT DOSE: 1244.60 mGy.cm COMPARISON: Head CT 12/24/2015. FINDINGS: CT HEAD: No acute intracranial hemorrhage, midline shift, hydrocephalus, or territorial ischemia. 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 Cystic ab normality communicating with the fourth ventricle is unchanged again containing a remnant of a ventri culostomy catheter. Left parietal approach ventriculostomy catheter is in unchanged positioning with distal tip projecting over the foramen of Monro. Decompressed lateral ventricles. Parenchymal calcifi cations adjacent to the fourth ventricle redemonstrated. Cerebral vascular calcifications. The calvar ium is intact. The paranasal sinuses, mastoid air cells, and middle ear cavities are clear. CTA HEAD AND NECK: Three-vessel morphology of the thoracic aortic arch. Patency of the innominate and imaged subclavian arteries. The common carotid arteries are widely patent. Mild atherosclerotic plaque of the carotid b ulbs and proximal cervical segments of the internal carotid arteries without significant luminal narr owing. The internal carotid arteries are widely patent. Development is diminutive right A1 segment. T he right middle and bilateral anterior cerebral arteries are patent. There is high-grade stenosis inv olving M2 branch of the left middle cerebral artery on image 117 with areas of poststenotic dilation measuring up to 4 mm seen on image 126 suggestive of chronic etiology. The vertebral arteries are codominant. Extensive atherosclerotic plaque of the V4 segments of the joshua tebral arteries. There is moderate luminal narrowing of the V4 segment right vertebral artery on imag e 332 series 6 with high-grade stenosis of the proximal basilar artery. Cerebral venous sinuses are p atent. There is no abnormal intracranial enhancement. There is no pneumothorax. Unremarkable thyroid. Soft tissues of the neck are unremarkable. Mild mucos al thickening of the ethmoid air cells. Degenerative changes of the spine. IMPRESSION: 1. No acute intracranial abnormality. 2. Left-sided ventriculostomy catheter redemonstrated. No hydrocephalus. 3. 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 4. Extensive atherosclerotic plaque of the distal vertebral and basilar arteries. There is resultant moderate stenosis of the V4 segment right vertebral artery with high-grade stenosis of the basilar ar germania. 5. 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 ACT 112: Negative or not required by law. The above report was generated using voice recognition software. It may contain grammatical, syntax o r spelling errors. Electronically signed by: Hiren Gutierrez M.D. 02/13/2021 1:16 PM
[2021-02-13] MEDS ORDERED: LABETALOL HCL IV 5 MG/ML 20ML IV STA (13:25)
--- NOTE | 2021-02-13 14:26 | History & Physical Report ---
Date of Service February 13, 2021 Assessment & Plan (1) Paresthesia: Patient with intermittent, transient paresthesias. Consider TIA symptoms versus accelerated hypertension. Patient has significant atherosclerotic disease found on CT imaging of the neck and head Placed in monitored observation under stroke protocol Start low-dose aspirin Check MRI of the brain. Patient is requesting sedation with this Check 2D echo Neurochecks for recurrent symptoms Check fasting lipids and hemoglobin A1c We will ask neurology to evaluate for further recommendations (2) Hypertension: Patient with significant hypertension, with was given labetalol 10 mg x 1 in the ER with some improvement Will start amlodipine 5 mg p.o. daily, first dose today Smoking cessation briefly discussed with patient (3) Hypocholesteremia: Check fasting lipids as noted above Considering atherosclerotic disease seen on imaging, feel statin is appropriate and will start atorvastatin 20 mg daily. Can adjust based on lipids. (4) Dandy-Walker deformity: Patient is a DIRECTOR ACCOUNT MANAGEMENT shunt in place. This seems to be functioning normally as per CT scan. History of Present Illness Chief Complaint: Paresthesias Primary Care Provider: Lawrence Wiggins DO This is a 45-year-old male with past medical history of Dandy-Walker syndrome, status post [employer]OUNT [employer] shunt that presents today complaining of paresthesias of his face and hand. Patient is a good historian. Patient states that he was enjoying his usual state of good health until earlier today. He was playing pickle ball with some friends. He had a very momentary feeling of numbness and tingling on his left lower face. There is no radiation and he denies any weakness/facial droop, dysarthria, or aphasia. Symptoms resolved within 2 minutes. Little while later, he had further numbness and tingling in his left hand. This is mostly in the first 2 digits. Again, there is no weakness or other symptoms associated with this. It lasted approximately 5 minutes and then resolved. He one of the people he was playing with was a medical fracture advised that he come to the hospital for further evaluation. In the ER, work-up is essentially been negative for acute cerebrovascular issue. He was found to be hypertensive with a blood pressure as high as 176/114. On further questioning, patient tells me that he has been noncompliant with his medications for some time. He cannot remember what he is supposed to be taking except that there was a blood pressure to cholesterol medicine involved. Allergies Allergy/AdvReac Type Severity Reaction Status Date / Time Penicillins Allergy Intermediate hives Verified 02/13/21 13:37 cat dander Allergy Mild runny Verified 02/13/21 13:37 nose, itchy eyes Home Medications Medication Instructions Recorded Confirmed Type No Known Home Medications 02/13/21 02/13/21 History Past Med/Surg History Medical History (Updated 02/13/21 @ 14:31 by Gus Connor DO) Dandy-Walker deformity Hypertension Hypocholesteremia Skin abscess Surgical History History of brain shunt Social History Smoking Status: Current every day smoker Tobacco Type: E-cigarettes / Vaping Feels Safe at Home: Yes Review of Systems Constitutional: no fever, no chills, no weakness, no weight loss and no weight gain Eyes: as per Subjective / HPI Respiratory: no cough, no chest congestion, no dyspnea and no dyspnea on exertion Cardiovascular: no chest pain, no orthopnea, no palpitations, no lightheadedness and no edema Gastrointestinal: no abdominal pain, no nausea, no vomiting, no constipation and no diarrhea/loose stools Musculoskeletal: no back pain, no neck pain, no joint pain, no stiffness and no myalgia Integumentary: no rash Neurologic: + loss of sensation, + numbness and + paresthesia; no gait a bnormality, no unsteadiness, no falls, no localized weakness, no generalized weakness, no paralysis, no dizziness, no syncope and no abnormal speech Physical Exam Constitutional: cooperative and comfortable; no acute distress Neck: trachea midline, no thyromegaly Respiratory: normal respiratory effort Auscultation: lungs clear to auscultation bilaterally; no crackles, no rales, no rhonchi and no wheezes Cardiovascular: Rate/Rhythm: regular rate and regular rhythm Heart Sounds: normal S1 and normal S2; no murmur Gastrointestinal (Abdomen): Inspection/Auscultation: abdomen normal to inspection Percussion/Palpation: abdomen soft; abdomen nontender, no guardi ng, abdomen not rigid and no hepatosplenomegaly Skin: no rashes, warm and dry Neurologic: patellar DTR's 2+ bilat, sensation intact and PERRL, EOMI, accommodation nl, no face palsy, no dysarthria Results & Data Results & Data ([facility]) Vital Signs (Past 12 Hours) Vital Signs Temp Pulse Resp BP Pulse Ox 02/13/21 14:00 76 15 156/105 H 93 02/13/21 13:01 78 14 176/108 H 98 02/13/21 12:52 82 21 141/113 H 95 02/13/21 12:10 87 24 166/105 H 97 02/13/21 10:11 36.3 C L 101 H [address] head/brain wo con, CT angio neck with con, CT angio head w con CLINICAL HISTORY: 45 years-old Male with Stroke Like Symptoms. Acute strokelike symptoms TECHNIQUE: Multiple axial CT images of the head were obtained without contrast. CTA head and neck was also obtained following the intravenous administration of 120 mL Optiray 320. 3-D coronal and sagittal MIPS were obtained today set and were symmetric for review. All measurements were obtained according to NASCET criteria. A dose lowering technique was utilized adhering to the principles of ALARA. CT DOSE: 1244.60 mGy.cm COMPARISON: Head CT 12/24/2015. FINDINGS: CT HEAD: No acute intracranial hemorrhage, midline shift, hydrocephalus, or territorial ischemia. 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 Cystic abnormality communicating with the fourth ventricle is unchanged again containing a remnant of a ventriculostomy catheter. Left parietal approach ventriculostomy catheter is in unchanged positioning with distal tip projecting over the foramen of Monro. Decompressed lateral ventricles. Parenchymal calcifications adjacent to the fourth ventricle redemonstrated. Cerebral vascular calcifications. The calvarium is intact. The paranasal sinuses, mastoid air cells, and middle ear cavities are clear. CTA HEAD AND NECK: Three-vessel morphology of the thoracic aortic arch. Patency of the innominate and imaged subclavian arteries. The common carotid arteries are widely patent. Mild atherosclerotic plaque of the carotid bulbs and proximal cervical segments of the internal carotid arteries without significant luminal narrowing. The internal carotid arteries are widely patent. Development is diminutive right A1 segment. The right middle and bilateral anterior cerebral arteries are patent. There is high-grade stenosis involving M2 branch of the left middle cerebral artery on image 117 with areas of poststenotic dilation measuring up to 4 mm seen on image 126 suggestive of chronic etiology. The vertebral arteries are codominant. Extensive atherosclerotic plaque of the V4 segments of the vertebral arteries. There is moderate luminal narrowing of the V4 segment right vertebral artery on image 332 series 6 with high-grade stenosis of the proximal basilar artery. Cerebral venous sinuses are patent. There is no abnormal intracranial enhancement. There is no pneumothorax. Unremarkable thyroid. Soft tissues of the neck are unremarkable. Mild mucosal thickening of the ethmoid air cells. Degenerative changes of the spine. IMPRESSION: 1. No acute intracranial abnormality. 2. Left-sided ventriculostomy catheter redemonstrated. No hydrocephalus. 3. 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 4. Extensive atherosclerotic plaque of the distal vertebral and basilar arteries. There is resultant moderate stenosis of the V4 segment right vertebral artery with high-grade stenosis of the basilar artery. 5. 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 ------ PG Care Time/CCT Total # of Minutes Spent Total Time Spent with Patient: Total time spent is greater than 50% in coordination of care (as documented) at patient's floor/unit and/or counseling patient: Coding Level of Care Code 64625 OBS Care - Level 3 Diagnoses Paresthesia R20.2 Hypertension I10 Hypocholesteremia E78.6 Dandy-Walker deformity Q03.1
[2021-02-13] MEDS ORDERED: ASPIRIN 81 MG CHEW PO ONE (18:00)
[2021-02-13] MEDS ORDERED: PHARMACIST DISCHARGE MED REC CONSULT PRN (18:00)
[2021-02-13] MEDS ORDERED: LORazepam 0.5 MG TAB PO STA (18:00)
[2021-02-13] MEDS: amLODIPine BESYLATE 5 MG TAB PO SCH (20:20)
[2021-02-13] MEDS ORDERED: ASPIRIN CHEW 324 MG ONE (20:22)
[2021-02-14 07:15] LABS: Basophils # (auto) 0.02 K/uL (0-0.2); Basophils % (auto) 0.3 %; Eosinophils # (auto) 0.16 K/uL (0-0.5); Eosinophils % (auto) 2.5 %; Hematocrit (blood only) 41.8 % (42-52); Hemoglobin 14.4 g/dL (14.0-18.0); Immature Granulocytes # (auto) 0.02 K/uL (0.00-0.02); Immature Granulocytes % (auto) 0.3 %; Lymphocytes # (auto) 2.13 K/uL (1.2-3.4); Lymphocytes % (auto) 32.8 %; Mean Corpuscular Hemoglobin 30.8 pg (25-34); Mean Corpuscular Hgb Conc 34.4 g/dL (32-36); Mean Corpuscular Volume 89.5 fL (80-100); Monocytes # (auto) 0.56 K/uL (0.11-0.59); Monocytes % (auto) 8.6 %; Neutrophils % (auto) 55.5 %; Platelet Count 388 K/uL (130-400); RDW Standard Deviation 42.3 fL (36.4-46.3); Red Blood Count 4.67 M/uL (4.7-6.1); White Blood Count 6.49 K/uL (4.8-10.8)
[2021-02-14 07:37] LABS: Calcium 8.6 mg/dl (8.5-10.1); Creatinine Clr Calc Pharmacy 128.6 ml/min; Est GFR (Non-African American) 101.8 ml/min; Magnesium 2.4 mg/dl (1.8-2.4); Potassium 4.3 mmol/L (3.5-5.1)
[2021-02-14 07:53] LABS: Estimated Average Glucose 111 mg/dl; Hemoglobin A1C 5.5 % (4.5-5.6)
--- NOTE | 2021-02-14 08:01 | Electrocardiogram Report ---
Test Reason : Blood Pressure : / mmHG Vent. Rate : 082 BPM Atrial Rate : 082 BPM P-R Int : 166 ms QRS Dur : 096 ms QT Int : 398 ms P-R-T Axes : 040 012 017 degrees QTc Int : 464 ms Normal sinus rhythm Normal ECG When compared with ECG of 27-JAN-2018 00:59, No significant change was found Confirmed by Mark Anthony Lugo ([id number]) on 02/14/2021 8:01:03 AM Referred By: ER Confirmed By:Mark Anthony Lugo
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
[2021-02-14] MEDS ORDERED: ATORVASTATIN 20 MG TAB PO SCH (09:00)
[2021-02-14] MEDS ORDERED: CLOPIDOGREL BISULFATE 75 MG TAB PO SCH (09:00)
[2021-02-14] MEDS: amLODIPine BESYLATE 5 MG TAB PO SCH (09:19)
[2021-02-14] MEDS ORDERED: LORazepam 0.5 MG TAB ONE (12:52)
--- NOTE | 2021-02-14 13:44 | Magnetic Resonance Report ---
MRI OF THE BRAIN WITHOUT CONTRAST CLINICAL HISTORY: TIA/CVA COMPARISON STUDY: Outside MRI the brain dated 01/08/2013, 12/14/2012 FINDINGS: Sagittal T1, axial diffusion, proton density and T2 weighted axial, coronal FLAIR, and axial T1-weigh viviana images were acquired. No intra or extra-axial mass lesions are visualized Axial diffusion-weighted images reveal no evidence of acute or subacute infarction. There is a large posterior fossa cyst which communicates with the fourth ventricle. 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 There is a left-sided ventriculostomy catheter which traverses th e left lateral ventricle and terminates just to the right of midline and superior to the third ventri jaime. Proton density T2-weighted and FLAIR images reveal linear increased FLAIR signal within the right hem isphere, likely secondary to a prior shunt catheter tract. There are minimal foci of increased FLAIR signal within the white matter, likely small vessel basis. There are no abnormal flow voids. IMPRESSION: 1. No acute intracranial findings 2. Dandy-Walker malformation 3. Partial agenesis of the corpus callosum 4. Left-sided ventriculostomy catheter which traverses the left lateral ventricle and terminates just above the third ventricle 5. No evidence of hydrocephalus 6. No evidence of acute or subacute infarction ACT 112: Negative or not required by law. Electronically signed by: Favio Ruano M.D. 02/14/2021 1:43 PM
[2021-02-14] MEDS ORDERED: STROKE PATIENT DISCHARGE STA (15:27)
--- NOTE | 2021-02-14 15:33 | Discharge Summary ---
Date of Service February 14, 2021 Admission HPI Per Admitting Provider This is a 45-year-old male with past medical history of Dandy-Walker syndrome, status post NOVELTY DIPPER shunt that presents today complaining of paresthesias of his face and hand. Patient is a good historian. Patient states that he was enjoying his usual state of good health until earlier today. He was playing pickle ball with some friends. He had a very momentary feeling of numbness and tingling on his left lower face. There is no radiation and he denies any weakness/facial droop, dysarthria, or aphasia. Symptoms resolved within 2 minutes. Little while later, he had further numbness and tingling in his left hand. This is mostly in the first 2 digits. Again, there is no weakness or other symptoms associated with this. It lasted approximately 5 minutes and then resolved. He one of the people he was playing with was a medical fracture advised that he come to the hospital for further evaluation. In the ER, work-up is essentially been negative for acute cerebrovascular issue. He was found to be hypertensive with a blood pressure as high as 176/114. On further questioning, patient tells me that he has been noncompliant with his medications for some time. He cannot remember what he is supposed to be taking except that there was a blood pressure to cholesterol medicine involved. Admission Exam Per Admitting Provider Constitutional: cooperative and comfortable; no acute distress Neck: trachea midline, no thyromegaly Respiratory: normal respiratory effort Auscultation: lungs clear to auscultation bilaterally; no crackles, no rales, no rhonchi and no wheezes Cardiovascular: Rate/Rhythm: regular rate and regular rhythm Heart Sounds: normal S1 and normal S2; no murmur Gastrointestinal (Abdomen): Inspection/Auscultation: abdomen normal to inspection Percussion/Palpation: abdomen soft; abdomen nontender, no guarding, abdomen not rigid and no hepatosplenomegaly Skin: no rashes, warm and dry Neurologic: patellar DTR's 2+ bilat, sensation intact and PERRL, EOMI, accommodation nl, no face palsy, no dysarthria Principal Diagnosis TIA Discharge Exam GENERAL: No acute distress. Well developed and well nourished. Vital signs reviewed as above. EYES: PERRLA. Leftward nystagmus which patient reports is chronic. Anicteric sclerae. HENT: Moist mucous membranes. No pharyngeal erythema or exudates. Tongue midline. No cervical lymphadenopathy. RESPIRATORY: Clear to auscultation bilaterally. No wheezing, rales, or rhonchi. CARDIOVASCULAR: Regular rate and rhythm. No murmurs. ABDOMEN: Soft, non-tender and non-distended. Normal bowel sounds. EXTREMITIES: No edema. Non-tender. SKIN: Warm, dry. No rashes or lesions. NEUROLOGIC: No focal neurological deficits. CN II-XII grossly intact. 5/5 strength in BUE and BLE. Normal sensation throughout face, BUE, and BLE. Speech with normal tone and rate. PSYCHIATRIC: Cooperative. Anxious mood and affect. Discharge Data Allergies Allergy/AdvReac Type Severity Reaction Status Date / Time Penicillins Allergy Intermediate hives Verified 02/13/21 13:37 cat dander Allergy Mild runny Verified 02/13/21 13:37 nose, itchy eyes Consultations 02/13/21 13:47 ED Decision to Admit Stat 02/13/21 18:00 Consult Neurology Routine Ordered Studies 02/13/21 11:45 CT angio head w con Stat CT angio neck with con Stat CT head/brain wo con Stat 02/14/21 09:22 MR brain wo con Routine Hospital Course (1) Brain TIA: Mr. Arrieta is a 45 yo male with PMHx of HTN and hyperlipidemia, both of which he is noncompliant on home medications, as well as a hx of Dandy-Walker deformity s/p NOVELTY DIPPER shunt placement who was admitted for TIA work up after presentation of left facial numbness/paresthesias. Brain TIA - Possibly associated with hypertensive urgency/emergency - Intermittent paresthesia resolved - Head CT / Head/Neck CTA 02/13: No acute intracranial abnormality. Left-sided ventriculostomy catheter redemonstrated. No hydrocephalus. 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 Extensive atherosclerotic plaque of the distal vertebral and basilar arteries. There is resultant moderate stenosis of the V4 segment right vertebral artery with high- grade stenosis of the basilar artery. 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 - Brain MRI 02/14: No acute intracranial findings. Dandy-Walker malformation. Partial agenesis of the corpus callosum. Left-sided ventriculostomy catheter which traverses the left lateral ventricle and terminates just above the third ventricle. No evidence of hydrocephalus. No evidence of acute or subacute infarction - Neurology consulted. Recommendations summarized as below: - Initiate clopidogrel 75mg po daily - High dose statin candidate -- atorvastatin was increased from 20mg po daily to 40 mg po daily on day of discharge - Continue BP control - HgbA1c wnl at 5.5% - Will need to follow up with neurology, Dr. Fortune, in outpatient setting in 1-2 weeks Anxiety/Excessive Stress - Patient indicated high levels of anxiety. Stressors primarily around parenting styles between himself and his ex- with their 13-year-old son - Patient was tearful throughout discussions and stated that he "needs to take care of himself" which includes medication compliance - He was encouraged to seek support through his PCP and to also reach out for mental health counseling/therapy - Please f/u with patient in outpatient setting regarding mental health needs Hypertension: - Significant hypertension, was given labetalol 10 mg x 1 in the ER with some improvement - Started on amlodipine 5mg po daily on admission. However, on discharge amlodipine was discontinued secondary to increase in statin to high-intensity. - On discharge, patient prescribed lisinopril 10mg po daily - Lengthy discussion with patient regarding importance of medication compliance - Recommend continued support as outpatient - Continue to encourage tobacco/nicotine abstinence and encourage vape cessation Hypocholesteremia: - Lipid profile 02/14: Total cholesterol 246, triglycerides 296, HDL 36, LDL 151 - High-dose atorvastatin as noted above Dandy-Walker deformity: - NOVELTY DIPPER shunt in place. This seems to be functioning normally as per CT scan. (2) Paresthesia: (3) Dandy-Walker deformity: (4) Hypertension: (5) Hypocholesteremia: (6) Basilar artery stenosis: Total Time Total Time Spent Total Time Spent (In Minutes): See attending attestation Discharge Plan Discharge Items Patient Disposition: Home - Self-Care Reason For Visit: TIA R/O Discharge Diagnosis: TIA Condition on Discharge: Fair Activity: Resume your previous activity Non-emergency contact: Primary Care Provider Call non-emergency contact if: you have any medication questions and your symptoms worsen Follow-up/Referrals: Lawrence Wiggins, [Primary Care Provider] - Diet: Heart Healthy and Low Sodium (2gm) Addtl Attending Provider Instructions: Please call Dr. Fortune office to set up appointment for follow up Please also call your family physician for hospital follow up appointment in 1-2 wks. You possibly had a ministroke. The MRI brain didn't show any strokes. You also have significant blockages in the arteries supplying the brain. It is good that you are not smoking anymore. To prevent further worsening it is important that you continue to not smoke and your blood pressure is well controlled. You will be taking three new medications. One is antiplatelet - Plavix (clopidogrel), next is cholesterol medicine- Atorvastatin, third is the blood pressure medicine- lisinopril. You should take these daily and not miss any doses. Side effects reviewed with you. Please call your family physician with any concerns about your new medication. Pending Studies at Discharge: No Stand-Alone Forms: Medications to Prevent Stroke, [email or web address], Smoking Cessation Medications and DC Order Prescriptions: New atorvastatin 40 mg Tablet 40 mg PO QAM Qty: 30 RF: 0 clopidogrel 75 mg Tablet 75 mg PO QAM Qty: 30 RF: 0 lisinopril 10 mg tablet 10 mg PO DAILY Qty: 30 RF: 0 No Action No Known Home Medications RF: 0 Discharge Orders: Discharge Order (Routine); Ordered 02/14/21 Ordered By: Tarsha Barton/Other Patient Handouts: Stroke and Heart Disease, Stroke: Taking Medicines, Stroke: Tips for Swallowing Admission Data Admit Date/Time: 02/13/21 14:43 Attending Provider: Tarsha Tinoco Admit Provider: Gus Connor Primary Care Provider: Lawrence Wiggins Other Providers: Gus Connor ; Jaxon Fortune Other Interventions: Discharge Summary Assessment (RN) Last Done: 02/14/21 15:36 Discharge Summary Assessment (RN) Last Done: 02/14/21 16:04 Supervising Physician Co-Signing Physician Notes Resident Physician Supervision Note: I independently interviewed and examined the patient and verified the guidry history and physical, reviewed labs and image studies and agree with resident Dr. Jordan findings and care plan. Resident Activity Tracking Resident Involvement: Resident Care Provided Care Provided: Adult Hospital Medicine
--- NOTE | 2021-02-14 15:53 | Pharmacy Report ---
Pharmacist Stroke Counseling - Date of Service February 14, 2021 - Scope: Pharmacy has been consulted to provide medication discharge counseling for this patient admitted with transient ischemic attack as per the Pharmacist Discharge Counseling for Stroke Patients Protocol. - Medications on Discharge: Home Medications Medication Instructions Recorded Confirmed No Known Home Medications 02/13/21 02/13/21 New Rx's Medication Instructions Recorded atorvastatin 40 mg PO QAM #30 tab 02/14/21 clopidogrel 75 mg PO QAM #30 tab 02/14/21 lisinopril 10 mg PO DAILY #30 tab 02/14/21 - Action: The above medications, specifically ones for stroke treatment/prophylaxis have been reviewed in detail with the patient prior to discharge. This includes indication, common adverse reactions, drug interactions, and medication administration. Medication counseling has been employed using the teach-back method to ensure understanding. - Outcome: The patient have demonstrated understanding of the medications. Spoke over the phone with patient today- he was very pleasant and receptive to counseling. Reviewed new medications to prevent stroke including Atorvastatin 40 mg and Plavix 75 mg. Also mentioned new med: Lisinopril. Discussed why they are being used and common side effects in great detail. Reviewed how to use the medications, what to do if doses are missed, common drug interactions, common side effects, what to watch out for while using the medications. Pt verbalized understanding and restated the guidry points of each medication. Thank you for allowing pharmacy to be involved in the care of this patient. Please call [phone] with any additional questions
[2021-02-15] MEDS ORDERED: ATORVASTATIN 40 MG TAB PO SCH (09:00)
== END 2021-02-14 15:45 | disposition home or self-care (01) ==
LOC: EDINP 10:08 → ED 10:08 → SUATTDRO 14:43 → 2S 17:09